=== PATIENT | male | born 1975 | race Caucasian/White ===

== ENCOUNTER 2020-10-04 17:50 | Inpatient (IN) | payer OTHER ==
[~2020-10-04] VITALS: Ht 162.6 cm; Wt 66.3 kg
[~2020-10-04 17:50] MED LIST: ADMELOG SO100 UNIT/1 SC; ALL DAY ALLERGY10 M2 PO; ASPIRIN CHEWABL81 MG PO; BASAGLAR K100 UNIT/1 SQ; GABAPENTIN100 MG PO; HUMALOG 10100 UNITS/ SC; KEPPRA750 MG PO; LANTUS INS100 UTS/M1 SQ; LORTAB 7.5-3251 EACH PO; NEURONTIN600 MG PO; NORVASC 5 MG TAB5 MG PO; THERAGRAN M TAB1 EA PO; UNASYN 3 GM VIAL3 GM INJ; VITAMIN D31250 MCG PO
[2020-10-04] MEDS ORDERED: BASAGLAR K100 UNIT/1 SC (20:26)
[2020-10-05 04:30] LABS: HEMOGLOBIN 8.8 gm/dl (14.0-17.5); RED BLOOD COUNT 3.33 M/UL (4.20-5.50); WHITE BLOOD COUNT 4.3 K/UL (4.5-11.0)
[2020-10-06 05:12] LABS: HEMOGLOBIN 8.6 gm/dl (14.0-17.5); RED BLOOD COUNT 3.29 M/UL (4.20-5.50); WHITE BLOOD COUNT 3.6 K/UL (4.5-11.0)
[2020-10-06 08:13] LABS: RPR Non Reactive (Non Reactive)
[2020-10-06 09:14] LABS: COMPLEMENT C3, SERUM 92 mg/dL (82-167); COMPLEMENT C4, SERUM 14 mg/dL (12-38)
[2020-10-06 09:14] LABS: HIV SCREEN 4TH GENERATION WRFX Non Reactive (Non Reactive)
[2020-10-06 10:14] LABS: HBSAG SCREEN Negative (Negative); HEP A AB, IGM Negative (Negative); HEP B CORE AB, IGM Negative (Negative); HEP C VIRUS AB <0.1 (0.0-0.9)
[2020-10-07 14:13] LABS: ANTI-DSDNA ANTIBODIES <1 IU/mL (0-9)
[2020-10-07 14:13] LABS: OSMOLALITY, URINE 307 (.)
[2020-10-08 15:12] LABS: A/G RATIO 0.9 (0.7-1.7); ALBUMIN 1.9 g/dL (2.9-4.4); ALPHA-1-GLOBULIN 0.2 g/dL (0.0-0.4); ALPHA-2-GLOBULIN 0.8 g/dL (0.4-1.0); BETA GLOBULIN 0.8 g/dL (0.7-1.3); GAMMA GLOBULIN 0.5 g/dL (0.4-1.8); GLOBULIN, TOTAL 2.2 g/dL (2.2-3.9); M-SPIKE Not Observed g/dL (Not Observed); PROTEIN, TOTAL, SERUM 4.1 g/dL (6.0-8.5)
[2020-10-08 16:12] LABS: ANTIMYELOPEROXIDASE (MPO) ABS <9.0 U/mL (0.0-9.0); ANTIPROTEINASE 3 (PR-3) ABS <3.5 U/mL (0.0-3.5); ATYPICAL PANCA <1:20 titer (Neg:<1:20); CYTOPLASMIC (C-ANCA) <1:20 titer (Neg:<1:20); PERINUCLEAR (P-ANCA) <1:20 titer (Neg:<1:20)
[2020-10-10 08:14] LABS: AMPHETAMINE Negative (Cutoff=500); AMPHETAMINES Positive (Cutoff=1000); AMPHETAMINES, URINE See Final Results ng/mL (Cutoff=1000); BARBITURATE Negative ng/mL (Cutoff=200); BENZODIAZEPINES Negative ng/mL (Cutoff=200); CANNABINOIDS Negative ng/mL (Cutoff=20); COCAINE (METABOLITE) Negative ng/mL (Cutoff=300); CREATININE 14.6 mg/dL (20.0-300.0); MEPERIDINE Negative ng/mL (Cutoff=200); METHADONE Negative ng/mL (Cutoff=300); METHAMPHETAMINE Positive (.); METHAMPHETAMINE GC/MS CONF 890 ng/mL (Cutoff=500); OPIATES Negative ng/mL (Cutoff=300); PHENCYCLIDINE Negative ng/mL (Cutoff=25); PROPOXYPHENE Negative ng/mL (Cutoff=300)
== END 2020-10-06 18:25 | disposition left against medical advice (07) | DRG 683 ==
LOC: M/S 20:12
PROVIDERS: Internal Medicine; Internal Medicine Nephrology; ADMIT Internal Medicine Infectious Disease
DX: N17.9 Acute kidney failure, unspecified (principal); E44.0 Moderate protein-calorie malnutrition; I16.9 Hypertensive crisis, unspecified; E11.21 Type 2 diabetes mellitus with diabetic nephropathy; N18.4 Chronic kidney disease, stage 4 (severe); Z20.822 Contact with and (suspected) exposure to COVID-19; E21.3 Hyperparathyroidism, unspecified; F19.11 Other psychoactive substance abuse, in remission; E11.40 Type 2 diabetes mellitus with diabetic neuropathy, unspecified; G40.909 Epilepsy, unspecified, not intractable, without status epilepticus; F17.220 Nicotine dependence, chewing tobacco, uncomplicated; E55.9 Vitamin D deficiency, unspecified; R68.0 Hypothermia, not associated with low environmental temperature; D63.1 Anemia in chronic kidney disease; D50.9 Iron deficiency anemia, unspecified; E11.649 Type 2 diabetes mellitus with hypoglycemia without coma; I13.10 Hypertensive heart and chronic kidney disease without heart failure, with stage 1 through stage 4 chronic kidney disease, or unspecified chronic kidney disease; E11.22 Type 2 diabetes mellitus with diabetic chronic kidney disease; Z91.19 Patient's noncompliance with other medical treatment and regimen; Z68.22 Body mass index [BMI] 22.0-22.9, adult; Z89.422 Acquired absence of other left toe(s); Z83.3 Family history of diabetes mellitus; Z82.49 Family history of ischemic heart disease and other diseases of the circulatory system
CPT/HCPCS: 36415; 80069; 80074; 80307; 81001; 82140; 82550; 82553; 82570; 82607; 82728; 82746; 82803; 82962; 83520; 83540; 83550; 83605; 83735; 83880; 83935; 83970; 84133; 84155; 84156; 84165; 84300; 84443; 84484; 84550; 85025; 85045; 85610; 85652; 86140; 86160; 86225; 86256; 86592; 87389; 89050; J1650; J1756; J7030; U0002